=== PATIENT | male | born 1980 | race Caucasian/White ===

== ENCOUNTER 2019-03-01 00:01 | Emergency (ER) | payer OTHER ==
[2019-03-01] MEDS: HYDROCODONE/APAP (5/325) TAB PO (02:20)
[2019-03-01] MEDS: TETRACAINE 0.5% 4 ML OPH BOTH EYES (02:20)
== END 2019-03-01 02:53 | disposition home or self-care (01) ==
LOC: FTE 00:01
DX: H16.133 Photokeratitis, bilateral (principal)
CPT/HCPCS: 99283; Z7502